=== PATIENT | male | born 1980 | race Caucasian/White ===

== ENCOUNTER 2016-08-24 08:25 | Inpatient (IN) | payer OTHER ==
[2016-08-24 08:38] VITALS: RESP 18
--- NOTE | 2016-08-24 08:55 | ED ---
General Adult HPI - General Chief complaint: Chest Pain Stated complaint: Chest pain/Sob Time Seen by Provider: 08/24/16 08:30 Source: patient, RN notes reviewed Mode of arrival: ambulatory Limitations: no limitations - History of Present Illness Initial comments: This is a 36-year-old male who presents emergency Department complaining of chest pain and palpitations. Patient states that he did 4 lines of cocaine starting at 3 AM to approximately 7 AM. Patient states within the hour after his last line of cocaine he started having some chest pain and palpitations. Patient denies any shortness of breath. Patient denies any radiation of the pain. Patient denies any recent fever or chills. Patient denies abdominal pain patient denies nausea vomiting diarrhea. Patient denies any headache patient denies numbness weakness. Patient denies lightheadedness dizziness or near syncopal episode. - Related Data Home Medications Medication Instructions Recorded Confirmed Pantoprazole Sodium [Protonix] 40 mg PO BID 04/21/15 08/24/16 Atenolol [Tenormin] 25 mg PO DAILY 08/24/16 08/24/16 Allergies Allergy/AdvReac Type Severity Reaction Status Date / Time No Known Allergies Allergy Verified 08/24/16 09:24 Review of Systems ROS Statement: Those systems with pertinent positive or pertinent negative responses have been documented in the HPI. ROS Other: All systems not noted in ROS Statement are negative. Past Medical History Additional Past Medical History / Comment(s): Right Pneumothorax, tachycardia History of Any Multi-Drug Resistant Organisms: None Reported Past Surgical History: Hernia Repair Past Psychological History: No Psychological Hx Reported Smoking Status: Current every day smoker Past Alcohol Use History: Occasional Past Drug Use History: Cocaine General Exam - General Exam Comments Initial Comments: GENERAL: Patient is well-developed and well-nourished. Patient is nontoxic and well- hydrated and is in mild distress. ENT: Neck is soft and supple. No significant lymphadenopathy is noted. Oropharynx is clear. Moist mucous membranes. Neck has full range of motion without eliciting any pain. EYES: The sclera were anicteric and conjunctiva were pink and moist. Extraocular movements were intact and pupils were equal round and reactive to light. Eyelids were unremarkable. PULMONARY: Unlabored respirations. Good breath sounds bilaterally. No audible rales rhonchi or wheezing was noted. CARDIOVASCULAR: There is a regular rate and rhythm without any murmurs gallops or rubs. ABDOMEN: Soft and nontender with normal bowel sounds. No palpable organomegaly was noted. There is no palpable pulsatile mass. SKIN: Skin is clear with no lesions or rashes and otherwise unremarkable. NEUROLOGIC: Patient is alert and oriented x3. Cranial nerves II through XII are grossly intact. Motor and sensory are also intact. Normal speech, volume and content. Symmetrical smile. MUSCULOSKELETAL: Normal extremities with adequate strength and full range of motion. No lower extremity swelling or edema. No calf tenderness. LYMPHATICS: No significant lymphadenopathy is noted PSYCHIATRIC: Normal psychiatric evaluation. Normal interpersonal interactions appears functionally intact in deals appropriately with others. No signs of depression. Mild anxiety Limitations: no limitations Course Vital Signs 08/24/16 08/24/16 08:32 09:33 Temperature 96.7 F L Pulse Rate 93 86 Respiratory 18 18 Rate Blood Pressure 129/74 125/73 O2 Sat by Pulse 99 99 Oximetry Medical Decision Making - Medical Decision Making EKG shows normal sinus rhythm 82 bpm AL interval is 144 QRS is 86 QT interval 380 QTC is 443. Patient's EKG shows no ST segment elevation or depression or T wave abnormalities are noted. Chest x-ray shows no acute abnormality. Patient continued to have intermittent chest pain while in the emergency department. I spoke with because he agreed to admit the patient admitted the patient I consult cardiology a repeat enzymes. - Lab Data Result diagrams: 08/24/16 08:39 08/24/16 08:39 Lab Results 08/24/16 08/24/16 08/24/16 Range/Units 08:39 08:39 08:39 WBC 13.0 H (3.8-10.6) k/uL RBC 4.55 (4.30-5.90) m/uL Hgb 16.0 (13.0-17.5) gm/dL Hct 43.9 (39.0-53.0) % MCV 96.4 (80.0-100.0) fL MCH 35.1 H (25.0-35.0) pg MCHC 36.4 (31.0-37.0) g/dL RDW 13.2 (11.5-15.5) % Plt Count 173 (150-450) k/uL Neutrophils % 84 % Lymphocytes % 10 % Monocytes % 4 % Eosinophils % 1 % Basophils % 0 % Neutrophils # 10.9 H (1.3-7.7) k/uL Lymphocytes # 1.2 (1.0-4.8) k/uL Monocytes # 0.5 (0-1.0) k/uL Eosinophils # 0.2 (0-0.7) k/uL Basophils # 0.1 (0-0.2) k/uL PT (9.0-12.0) sec INR (<1.1) APTT (22.0-30.0) sec Sodium 141 (137-145) mmol/L Potassium 4.2 (3.5-5.1) mmol/L Chloride 104 (98-107) mmol/L Carbon Dioxide 21 L (22-30) mmol/L Anion Gap 16 mmol/L BUN 12 (9-20) mg/dL Creatinine 0.98 (0.66-1.25) mg/dL Est GFR (MDRD) Af Amer >60 (>60 ml/min/1.73 sqM) Est GFR (MDRD) Non-Af >60 (>60 ml/min/1.73 sqM) Glucose 83 (74-99) mg/dL Calcium 9.4 (8.4-10.2) mg/dL Magnesium 1.8 (1.6-2.3) mg/dL Total Bilirubin 0.7 (0.2-1.3) mg/dL AST 43 (17-59) U/L ALT 43 (21-72) U/L Alkaline Phosphatase 93 (38-126) U/L Total Creatine Kinase 344 H (55-170) U/L CK-MB (CK-2) 1.8 (0.0-2.4) ng/mL CK-MB (CK-2) Rel Index 0.5 Troponin I <0.012 (0.000-0.034) ng/mL NT-Pro-B Natriuret Pep pg/mL Total Protein 8.0 (6.3-8.2) g/dL Albumin 5.0 (3.5-5.0) g/dL Urine Opiates Screen (NotDetected) Ur Oxycodone Screen (NotDetected) Urine Methadone Screen (NotDetected) Ur Propoxyphene Screen (NotDetected) Ur Barbiturates Screen (NotDetected) U Tricyclic Antidepress (NotDetected) Ur Phencyclidine Scrn (NotDetected) Ur Amphetamines Screen (NotDetected) U Methamphetamines Scrn (NotDetected) U Benzodiazepines Scrn (NotDetected) Urine Cocaine Screen (NotDetected) U Marijuana (THC) Screen (NotDetected) 08/24/16 08/24/16 08/24/16 Range/Units 08:39 08:39 08:54 WBC (3.8-10.6) k/uL RBC (4.30-5.90) m/uL Hgb (13.0-17.5) gm/dL Hct (39.0-53.0) % MCV (80.0-100.0) fL MCH (25.0-35.0) pg MCHC (31.0-37.0) g/dL RDW (11.5-15.5) % Plt Count (150-450) k/uL Neutrophils % % Lymphocytes % % Monocytes % % Eosinophils % % Basophils % % Neutrophils # (1.3-7.7) k/uL Lymphocytes # (1.0-4.8) k/uL Monocytes # (0-1.0) k/uL Eosinophils # (0-0.7) k/uL Basophils # (0-0.2) k/uL PT 11.2 (9.0-12.0) sec INR 1.1 (<1.1) APTT 24.4 (22.0-30.0) sec Sodium (137-145) mmol/L Potassium (3.5-5.1) mmol/L Chloride (98-107) mmol/L Carbon Dioxide (22-30) mmol/L Anion Gap mmol/L BUN (9-20) mg/dL Creatinine (0.66-1.25) mg/dL Est GFR (MDRD) Af Amer (>60 ml/min/1.73 sqM) Est GFR (MDRD) Non-Af (>60 ml/min/1.73 sqM) Glucose (74-99) mg/dL Calcium (8.4-10.2) mg/dL Magnesium (1.6-2.3) mg/dL Total Bilirubin (0.2-1.3) mg/dL AST (17-59) U/L ALT (21-72) U/L Alkaline Phosphatase (38-126) U/L Total Creatine Kinase (55-170) U/L CK-MB (CK-2) (0.0-2.4) ng/mL CK-MB (CK-2) Rel Index Troponin I (0.000-0.034) ng/mL NT-Pro-B Natriuret Pep 57 pg/mL Total Protein (6.3-8.2) g/dL Albumin (3.5-5.0) g/dL Urine Opiates Screen Not Detected (NotDetected) Ur Oxycodone Screen Not Detected (NotDetected) Urine Methadone Screen Not Detected (NotDetected) Ur Propoxyphene Screen Not Detected (NotDetected) Ur Barbiturates Screen Not Detected (NotDetected) U Tricyclic Antidepress Not Detected (NotDetected) Ur Phencyclidine Scrn Not Detected (NotDetected) Ur Amphetamines Screen Not Detected (NotDetected) U Methamphetamines Scrn Not Detected (NotDetected) U Benzodiazepines Scrn Not Detected (NotDetected) Urine Cocaine Screen Detected H (NotDetected) U Marijuana (THC) Screen Not Detected (NotDetected) Disposition Clinical Impression: Chest pain, Cocaine abuse Disposition: ADMITTED IP TO THIS HOSP Referrals: Omari Arnett MD [Primary Care Provider] - 1-2 days Time of Disposition: 10:02
[2016-08-24 08:56] LABS: Basophils # (A) 0.1 k/uL (0-0.2); Basophils % (A) 0 %; CH 33.9; CHCM 35.3; Eosinophils # (A) 0.2 k/uL (0-0.7); Eosinophils % (A) 1 %; HCT 43.9 % (39.0-53.0); HDW 2.28; Luc # (Auto) 0.15; Luc % (Auto) 1; Lymphocytes # (A) 1.2 k/uL (1.0-4.8); Lymphocytes % (A) 10 %; MCH 35.1 pg (25.0-35.0); MCHC 36.4 g/dL (31.0-37.0); MCV 96.4 fL (80.0-100.0); Mean Platelet Volume 7.8; Monocytes # (A) 0.5 k/uL (0-1.0); Monocytes % (A) 4 %; Neutrophils # (A) 10.9 k/uL (1.3-7.7); Neutrophils % (A) 84 %; RBC 4.55 m/uL (4.30-5.90); RDW 13.2 % (11.5-15.5); WBC (Perox) 12.83
[2016-08-24 09:10] LABS: INR 1.1 (<1.1); Partial Thromboplastin Time 24.4 sec (22.0-30.0); Prothrombin Time 11.2 sec (9.0-12.0)
[2016-08-24 09:11] LABS: ALT 43 U/L (21-72); AST 43 U/L (17-59); Alkaline Phosphatase 93 U/L (38-126); Anion Gap 16 mmol/L; Blood Urea Nitrogen 12 mg/dL (9-20); Calcium 9.4 mg/dL (8.4-10.2); Carbon Dioxide 21 mmol/L (22-30); Chloride 104 mmol/L (98-107); Glucose 83 mg/dL (74-99); Magnesium 1.8 mg/dL (1.6-2.3); Non-African American GFR(MDRD) >60 (>60 ml/min/1.73 sqM); Potassium 4.2 mmol/L (3.5-5.1); Sodium 141 mmol/L (137-145); Total Bilirubin 0.7 mg/dL (0.2-1.3)
--- NOTE | 2016-08-24 09:12 | XR ---
EXAMINATION TYPE: XR chest 2V DATE OF EXAM: 08/24/2016 COMPARISON: 04/21/2015 HISTORY: Chest pain TECHNIQUE: Frontal and lateral views of the chest are obtained. FINDINGS: Heart and mediastinum are normal. Lungs are clear. Diaphragm is normal. Bony thorax is int act. There are chest leads. IMPRESSION: Normal chest. No change.
[2016-08-24 09:17] LABS: Creatine Kinase 344 U/L (55-170)
[2016-08-24 09:30] LABS: Creatine Kinase MB 1.8 ng/mL (0.0-2.4); Troponin I <0.012 ng/mL (0.000-0.034)
[2016-08-24] MEDS ORDERED: NITROGLYCERIN SL TABS 0.4 MG TAB SUBLINGUAL PRN (10:03)
[2016-08-24] MEDS ORDERED: ASPIRIN 81 MG CHEW PO STA (10:03)
[2016-08-24 12:54] VITALS: BP 107/57; PULSE 88; BMI 19.0
[2016-08-24 13:43] LABS: Creatine Kinase 295 U/L (55-170)
[2016-08-24 13:48] VITALS: TEMP 97.4
[2016-08-24 13:56] LABS: Creatine Kinase MB 1.4 ng/mL (0.0-2.4); Troponin I <0.012 ng/mL (0.000-0.034)
--- NOTE | 2016-08-24 14:53 | P.HPIM ---
History of Present Illness This is a 36-year-old male who presents emergency Department complaining of chest pain and palpitations. Patient states that he did 4 lines of cocaine starting at 3 AM to approximately 7 AM. Patient states within the hour after his last line of cocaine he started having some chest pain which is pressure- like sensation, denied any diaphoresis denied any nausea and palpitations. Patient when he came in had some shots of breath which also resolved at this point of time. Patient denies any radiation of the pain. Patient denies any recent fever or chills. Patient denies abdominal pain patient denies nausea vomiting diarrhea. Patient denies any headache patient denies numbness weakness. Patient denies lightheadedness dizziness or near syncopal episode. Patient's EKG showed normal sinus rhythm. Positive troponin is negative, we will repeat another set of troponin that is negative patient will be discharged. Patient does take in a lot of home didn't take his atenolol today. Since he just used cocaine until today morning, I asked him to avoid beta darron today can start it back tomorrow. Patient's symptoms are mostly due to severe depression, he denied any suicidal ideations, patient has significant multiple life events which led to his severe depression. Patient is in the normal bereavement period. After his mother's demise Review of Systems REVIEW OF SYSTEMS: CONSTITUTIONAL: No fever, no malaise, no fatigue. HEENT: No recent visual problems or hearing problems. Denied any sore throat. CARDIOVASCULAR: No , orthopnea, PND, no syncope. PULMONARY: no cough, no hemoptysis. GASTROINTESTINAL: No diarrhea, no nausea, no vomiting, no abdominal pain. Normoactive bowel sounds. NEUROLOGICAL: No headaches, no weakness, no numbness. HEMATOLOGICAL: Denies any bleeding or petechiae. GENITOURINARY: Denies any burning micturition, frequency, or urgency. MUSCULOSKELETAL/RHEUMATOLOGICAL: Denies any joint pain, swelling, or any muscle pain. ENDOCRINE: Denies any polyuria or polydipsia. The rest of the 14-point review of systems is negative. Past Medical History Past Medical History: GERD/Reflux Additional Past Medical History / Comment(s): Right Pneumothorax, tachycardia History of Any Multi-Drug Resistant Organisms: None Reported Past Surgical History: Hernia Repair Additional Past Surgical History / Comment(s): RIGHT CHEST TUBE FOR PNEUMOTHORAX Past Anesthesia/Blood Transfusion Reactions: No Reported Reaction Past Psychological History: No Psychological Hx Reported Smoking Status: Current every day smoker Past Drug Use History: Cocaine Additional Drug Use History / Comment(s): 08/24/2016 - Past Family History Mother History Unknown: Yes Family Medical History: Cancer Additional Family Medical History / Comment(s): LUNG, AND BRAIN CANCER. Father History Unknown: Yes Family Medical History: Hypertension Medications and Allergies Home Medications Medication Instructions Recorded Confirmed Type Pantoprazole Sodium [Protonix] 40 mg PO BID 04/21/15 08/24/16 History Atenolol [Tenormin] 25 mg PO DAILY 08/24/16 08/24/16 History Allergies Allergy/AdvReac Type Severity Reaction Status Date / Time No Known Allergies Allergy Verified 08/24/16 09:24 Physical Exam Vitals: Vital Signs Temp Pulse Pulse Resp BP BP Pulse Ox 08/24/16 11:45 97.4 F L 88 18 107/57 96 08/24/16 10:17 98.4 F 84 18 118/69 98 08/24/16 09:33 86 18 125/73 99 08/24/16 08:32 96.7 F L 93 18 129/74 99 Intake and Output 08/23/16 08/24/16 08/24/16 22:59 06:59 14:59 Other: Weight 63.503 kg Patient Weight 08/25/16 06:59 Weight 63.503 kg PHYSICAL EXAMINATION: GENERAL: The patient is alert and oriented x3, not in any acute distress. Well developed, well nourished. HEENT: Pupils are round and equally reacting to light. EOMI. No scleral icterus. No conjunctival pallor. Normocephalic, atraumatic. No pharyngeal erythema. No thyromegaly. CARDIOVASCULAR: S1 and S2 present. No murmurs, rubs, or gallops. PULMONARY: Chest is clear to auscultation, no wheezing or crackles. ABDOMEN: Soft, nontender, nondistended, normoactive bowel sounds. No palpable organomegaly. MUSCULOSKELETAL: No joint swelling or deformity. EXTREMITIES: No cyanosis, clubbing, or pedal edema. NEUROLOGICAL: Gross neurological examination did not reveal any focal deficits. SKIN: No rashes. Results CBC & Chem 7: 08/24/16 08:39 08/24/16 08:39 Labs: Abnormal Lab Results - Last 24 Hours (Table) 08/24/16 08/24/16 08/24/16 Range/Units 08:39 08:39 08:39 WBC 13.0 H (3.8-10.6) k/uL MCH 35.1 H (25.0-35.0) pg Neutrophils # 10.9 H (1.3-7.7) k/uL Carbon Dioxide 21 L (22-30) mmol/L Total Creatine Kinase 344 H (55-170) U/L Urine Cocaine Screen (NotDetected) 08/24/16 08/24/16 Range/Units 08:54 13:12 WBC (3.8-10.6) k/uL MCH (25.0-35.0) pg Neutrophils # (1.3-7.7) k/uL Carbon Dioxide (22-30) mmol/L Total Creatine Kinase 295 H (55-170) U/L Urine Cocaine Screen Detected H (NotDetected) Thrombosis Risk Factor Assmnt - Choose All That Apply Any of the Below Risk Factors Present?: No Other Risk Factors: No Other congenital or acquired thrombophilia - If yes, enter type in comment: No Thrombosis Risk Factor Assessment Level: Very Low Risk Assessment and Plan Plan: Assessment #1 chest pain and palpitations: Seconded to cocaine use. We will rule out acute coronary syndromes with another set of troponin after that patient will be discharged patient at this point of time which is pain-free and counseling regarding cocaine was provided. 2 gastroesophageal reflux disease patient will continue his Protonix. #3 nicotine abuse: Counseling was provided #4 depression: Patient can you his antidepressants and follow-up with his primary care physician.
--- NOTE | 2016-08-24 14:54 | P.DS ---
Providers Date of admission: 08/24/16 10:03 Please refer to my HPI for further details Attending physician: Kelvin London Primary care physician: Omari Arnett Hospital Course: Refer to HPI Plan - Discharge Summary New Discharge Prescriptions: No Action Pantoprazole Sodium [Protonix] 40 mg PO BID Atenolol [Tenormin] 25 mg PO DAILY Discharge Medication List Pantoprazole Sodium [Protonix] 40 mg PO BID 04/21/15 [History] Atenolol [Tenormin] 25 mg PO DAILY 08/24/16 [History] Follow up Appointment(s)/Referral(s): Omari Arnett MD [Primary Care Provider] - 3 Days (PT TO MAKE APPOINTMENT. TODAY IS August. ) Patient Instructions/Handouts: Chest Pain (DC), Cocaine Abuse (DC) Discharge Disposition: HOME SELF-CARE
[2016-08-25] MEDS ORDERED: ASPIRIN 325 MG TAB PO SCH (09:00)
== END 2016-08-24 14:45 | disposition home or self-care (01) | DRG 897 ==
LOC: EC 08:25 → 6SEL 10:03
PROVIDERS: ADMIT Internal Medicine; ATTEND Internal Medicine
DX: F14.188 Cocaine abuse with other cocaine-induced disorder (principal); F32.9 Major depressive disorder, single episode, unspecified; F41.9 Anxiety disorder, unspecified; K21.9 Gastro-esophageal reflux disease without esophagitis; R00.2 Palpitations; R07.9 Chest pain, unspecified; F17.200 Nicotine dependence, unspecified, uncomplicated; Z63.4 Disappearance and death of family member; Z80.8 Family history of malignant neoplasm of other organs or systems; Z79.899 Other long term (current) drug therapy; Z82.49 Family history of ischemic heart disease and other diseases of the circulatory system; Z80.1 Family history of malignant neoplasm of trachea, bronchus and lung; Z71.51 Drug abuse counseling and surveillance of drug abuser; Z86.79 Personal history of other diseases of the circulatory system; Z87.09 Personal history of other diseases of the respiratory system; Z71.6 Tobacco abuse counseling
CPT/HCPCS: 36415; 71020; 80053; 80306; 82550; 82553; 83735; 83880; 84484; 85025; 85610; 85730; 93005; 99285

== ENCOUNTER → 2020-06-16 | Outpatient (CLI) | payer SELFPAY ==
--- NOTE | 2020-06-16 11:58 | XR ---
EXAMINATION TYPE: XR chest 2V DATE OF EXAM: 06/16/2020 COMPARISON: 08/24/2016 HISTORY: Chest pain TECHNIQUE: Frontal and lateral views of the chest are obtained. FINDINGS: There is no focal air space opacity. No evidence for pneumothorax. No pleural effusion. The cardiac silhouette size is within normal limits. The osseous structures are grossly intact. IMPRESSION: 1. No acute cardiopulmonary process.
== END | disposition home or self-care (01) ==
LOC: RADXRMAIN 11:06
PROVIDERS: ATTEND Family Medicine
DX: R07.9 Chest pain, unspecified (principal)
CPT/HCPCS: 71046